=== PATIENT | female | born 1995 | race Caucasian/White ===

== ENCOUNTER → 2020-05-26 15:27 | Outpatient (CLI) | payer OTHER, SELFPAY ==
[2020-05-26 15:51] LABS: Add Manual Diff / Slide Review NO; Basophils Absolute Auto 100 /uL (0-100); Basophils Percent Auto 0.8 % (0-2); Eosinophils Absolute Auto 100 /uL (0-450); Eosinophils Percent Auto 2.3 % (2-4); Hematocrit 41.8 % (36-46); Hemoglobin 13.5 g/dL (12.0-16.0); Lymphocytes Absolute Auto 2000 /uL (1100-4500); Lymphocytes Percent Auto 29.9 % (25-40); Mean Corpuscular HGB Conc 32.2 % (30-36); Mean Corpuscular Hemoglobin 29.4 PG (26-34); Mean Corpuscular Volume 91.3 fL (80-100); Monocytes Absolute Auto 300 /uL (0-900); Neutrophils Absolute Auto 4100 /uL (1500-7000); Platelet Count 238 X10^3/uL (150-400); Red Blood Cell Count 4.58 X10^6/uL (4.0-5.2); Red Cell Distribution Width 14.3 % (11.6-14.8); White Blood Cell Count 6.6 X10^3/uL (4.5-11.0)
[2020-05-26 15:54] LABS: Appearance Urine UA CLEAR; Bilirubin Urine UA NEGATIVE (NEGATIVE); Color Urine UA YELLOW; Glucose Urine UA NEGATIVE (Negative); Ketones Urine UA NEGATIVE (NEGATIVE); Leukocyte Esterase Urine UA NEGATIVE (NEGATIVE); Nitrite Urine UA NEGATIVE (Negative); Occult Blood Urine UA NEGATIVE (Negative); Protein Urine UA NEGATIVE (Negative); Urobilinogen Urine UA 0.2 E.U./dL (0.2)
[2020-05-26 15:55] LABS: pH Urine UA 6.5 (4.5-8.0)
[2020-05-26 16:02] LABS: Alanine Aminotransferase 9 IU/L (<35); Albumin 4.3 g/dL (3.5-5.0); Albumin Globulin Ratio 1.6 (1.0-2.8); Alkaline Phosphatase 37 U/L (38-126); Aspartate Aminotransferase 23 IU/L (14-36); Bilirubin Total 0.6 mg/dL (0.2-1.3); Blood Urea Nitrogen 8 mg/dL (7-17); Calcium 8.9 mg/dL (8.4-10.2); Carbon Dioxide 28 mmol/L (22-32); Chloride 105 mmol/L (98-107); Estimated Glomerular Filt Rate > 60.0 mL/min (>60); Globulin 2.7 g/dL (1.7-4.1); Glucose 74 mg/dL (70-100); HEMOLYSIS < 15 (0-50); Potassium 4.2 mmol/L (3.4-5.1); Sodium 139 mmol/L (137-145)
== END ==
LOC: LAB 15:30
PROVIDERS: PCP Registered Nurse; Referring Provider Registered Nurse; Visit Provider Registered Nurse
DX: R53.83 Other fatigue (principal); E03.9 Hypothyroidism, unspecified
CPT/HCPCS: 36415; 80053; 81003; 84439; 84443; 85025

== ENCOUNTER → 2020-05-30 10:18 | Outpatient (CLI) | payer OTHER, SELFPAY ==
--- NOTE | 2020-05-30 10:19 | DI.US.S_ITS ---
PROCEDURE: US THYROID INDICATIONS: ROBYN'S; NODULES TECHNIQUE: Real-time scanning was performed of the thyroid gland, with image documentation. COMPARISON: None. FINDINGS: Right: Thyroid lobe measures 1.1 x 1.4 x 2.9 cm, and is mildly heterogeneous in echotexture except for presence of a small nodule abutting the margin of the isthmus and and upper 3rd right thyroid lobe nodule, detailed below. Left: Thyroid lobe measures 1.1 x 1.4 x 2.5 cm, and is mildly heterogeneous in echotexture except for presence of a upper lobe small nodule and a lower lobe small nodule. Isthmus: 1.5 mm thick. Nodule number: 1 Location: Right thyroid lobe near the isthmus Size: 1.0 x 0.6 x 1.2 cm. Composition: Solid Echogenicity: Hypoechoic Shape: Wider than tall Margins: Ill-defined Echogenic foci: None Total points: 4 ACR TI-RADS category: Category 4, given small size no biopsy is recommended. Follow-up ultrasound is recommended in 1, 2, 3 and 5 years. Nodule number: 2 Location: Upper 3rd right thyroid lobe Size: 1.2 x 0.9 x 0.7 cm. Composition: Solid Echogenicity: Hypoechoic Shape wider than tall Margins: Ill-defined Echogenic foci: None Total points: 4 ACR TI-RADS category: Category 4, and given small size no biopsy is recommended. Follow-up ultrasound in 1, 2, 3 and 5 years is recommended. Nodule number: 3 Location: Upper left thyroid lobe Size: 0.5 x 1.1 x 1.1 cm Composition: Solid Echogenicity: Hypoechoic Shape: Ill-defined Margins: Wider than tall Echogenic foci: None Total points: For ACR TI-RADS category: Category 4, and given small size no biopsy is recommended. Follow-up ultrasound in 1, 2, 3 and 5 years is recommended. Nodule number: 4 Location: Lower 3rd left thyroid lobe Size: 0.7 x 0.4 x 1.1 cm Composition: Solid Echogenicity: Hypoechoic Shape: Wider than tall Margins: Ill-defined Echogenic foci: None Total points: 4 ACR TI-RADS category: Category 4, and given small size no biopsy is currently recommended. Follow-up by ultrasound in 1, 2, 3 and 5 years is recommended. IMPRESSION: Each of the 4 nodules discussed above is small in size, 2 on the right and 2 on the left, and standardized recommendations for follow-up are provided in the body of the report above. Given the small size of these nodules no biopsy is currently recommended. Follow-up by ultrasound at the schedule noted, equivalent for each nodule, is recommended. ACR TI-RADS definitions and recommendations: TI-RADS 1 (benign): 0 points. FNA not needed. TI-RADS 2 (not suspicious): 2 points. FNA not needed. TI-RADS 3 (mildly suspicious): 3 points. * FNA if 2.5 cm or larger, follow up if 1.5 cm or larger (at 1, 3, and 5 years). TI-RADS 4 (moderately suspicious): 4-6 points. * FNA if 1.5 cm or larger, follow up if 1 cm or larger (at 1, 2, 3, and 5 years). TI-RADS 5 (highly suspicious): 7 points or more. * FNA if 1 cm or larger, follow up if 0.5 cm or larger (every year for 5 years). Dictated by: Donnie Wise M.D. on 05/30/2020 at 12:56 Approved by: Donnie Wise M.D. on 05/30/2020 at 13:06
== END ==
PROVIDERS: PCP Registered Nurse; Referring Provider Registered Nurse; Visit Provider Registered Nurse
DX: E04.2 Nontoxic multinodular goiter (principal)
CPT/HCPCS: 76536

== ENCOUNTER → 2020-07-24 13:54 | Outpatient (CLI) | payer OTHER, SELFPAY ==
[2020-07-24 16:38] LABS: Thyroid Stimulating Hormone 8.56 uIU/mL (0.47-4.68)
== END ==
PROVIDERS: PCP Registered Nurse; Referring Provider Registered Nurse; Visit Provider Registered Nurse
DX: E03.9 Hypothyroidism, unspecified (principal)
CPT/HCPCS: 36415; 84443

== ENCOUNTER → 2021-03-24 15:57 | Outpatient (CLI) | payer OTHER, SELFPAY ==
[2021-03-24 19:35] LABS: Thyroid Stimulating Hormone 122 uIU/mL (0.47-4.68)
[2021-03-30 15:36] LABS: QuantiFERON Mitogen Value >10.00 IU/mL (.); QuantiFERON Nil Value 0.09 IU/mL (.); QuantiFERON TB Gold Plus Negative (Negative); QuantiFERON TB1 Ag Value 0.09 IU/mL (.); QuantiFERON TB2 Ag Value 0.06 IU/mL (.)
== END ==
PROVIDERS: PCP Registered Nurse; Referring Provider Registered Nurse; Visit Provider Registered Nurse
DX: E03.9 Hypothyroidism, unspecified (principal); Z11.1 Encounter for screening for respiratory tuberculosis
CPT/HCPCS: 36415; 84443; 86480

== ENCOUNTER → 2022-05-05 17:01 | Outpatient (CLI) | payer OTHER, SELFPAY ==
[2022-05-05 18:57] LABS: Free T3, Triiodothyronine Free 4.03 pg/mL (2.77-5.27); Free T4, Direct Thyroxine 0.65 ng/dL (0.78-2.19)
[2022-05-05 19:10] LABS: Thyroid Stimulating Hormone 23.7 uIU/mL (0.47-4.68)
== END ==
LOC: LAB 17:02
PROVIDERS: PCP Family Medicine; Referring Provider Family Medicine; Visit Provider Family Medicine
DX: E03.9 Hypothyroidism, unspecified (principal); E04.1 Nontoxic single thyroid nodule
CPT/HCPCS: 36415; 84439; 84443; 84481

== ENCOUNTER → 2023-07-05 16:10 | Outpatient (CLI) | payer OTHER, SELFPAY ==
[2023-07-05 17:43] LABS: Follicle Stimulating Hormone 3.48 mIU/mL; Luteinizing Hormone 4.41 mIU/mL
[2023-07-05 18:34] LABS: Free T4, Direct Thyroxine 0.57 ng/dL (0.78-2.19)
[2023-07-10 13:59] LABS: Percent Free Testosterone 2.42 % (0.50-2.80); Testosterone Free 0.52 ng/dL (0.10-0.85); Testosterone Total 21.4 ng/dL (10.0-55.0)
== END ==
PROVIDERS: PCP Family Medicine; Referring Provider Family Medicine; Visit Provider Family Medicine
DX: L68.0 Hirsutism (principal); N92.6 Irregular menstruation, unspecified; E03.9 Hypothyroidism, unspecified
CPT/HCPCS: 36415; 83001; 83002; 84146; 84402; 84403; 84439; 84443

== ENCOUNTER → 2023-08-20 12:34 | Outpatient (CLI) | payer OTHER, SELFPAY ==
[2023-08-20 13:27] LABS: Free T3, Triiodothyronine Free 4.19 pg/mL (2.77-5.27)
[2023-08-20 13:41] LABS: TSH w/ Reflex to FT4 8.02 uIU/mL (0.47-4.68)
[2023-08-20 14:06] LABS: Free T4, Direct Thyroxine 0.99 ng/dL (0.78-2.19)
== END ==
PROVIDERS: PCP Family Medicine; Referring Provider Family Medicine; Visit Provider Family Medicine
DX: E03.9 Hypothyroidism, unspecified (principal)
CPT/HCPCS: 36415; 84439; 84443; 84481

== ENCOUNTER → 2023-11-30 13:35 | Outpatient (CLI) | payer OTHER, SELFPAY ==
[2023-11-30 15:31] LABS: Free T3, Triiodothyronine Free 5.31 pg/mL (2.77-5.27); Free T4, Direct Thyroxine 1.76 ng/dL (0.78-2.19)
[2023-11-30 15:45] LABS: Thyroid Stimulating Hormone 0.703 uIU/mL (0.47-4.68)
[2023-12-01 16:59] LABS: Anti Thyroglobulin Antibody 1.1 IU/mL (0.0-0.9); Thyroid Peroxidase Antibodies 179 IU/mL (0-34)
== END ==
LOC: LAB 13:37
PROVIDERS: PCP Family Medicine; Referring Provider Family Medicine; Visit Provider Family Medicine
DX: E03.9 Hypothyroidism, unspecified (principal); E04.1 Nontoxic single thyroid nodule
CPT/HCPCS: 36415; 84439; 84443; 84481; 86376; 86800

== ENCOUNTER → 2023-12-22 12:14 | Outpatient (CLI) | payer OTHER, SELFPAY ==
--- NOTE | 2023-12-22 12:15 | DI.US.S_ITS ---
PROCEDURE: US THYROID INDICATIONS: FOLLOW-UP NODULES TECHNIQUE: Real-time scanning was performed of the thyroid gland, with image documentation. COMPARISON: [facility], [place], US THYROID, 05/30/2020, 10:25. FINDINGS: Thyroid: Right lobe measures 3.3 x 1.1 x 0.9 cm. Left lobe measures 2.5 x 1.1 x 0.9 cm. Isthmus is 0.2 cm thick. Echotexture is heterogeneous. Nodule number: 1 Location: Right mid Size: 0.9 x 0.8 x 0.4 cm. (Previously 1.2 x 1 x 0.6 cm). Decreased. Composition: Solid Echogenicity: Isoechoic Shape: wider than tall. Margins: Smooth Echogenic foci: None Total points: 3 ACR TI-RADS category: TR 3, mildly suspicious Nodule number: 2 Location: Right superior Size: 1.1 x 0.7 x 0.5 cm. (previously 1.2 x 0.9 x 0.7 cm). Decreased. Composition: Solid Echogenicity: Isoechoic Shape: wider than tall. Margins: Smooth Echogenic foci: None Total points: 3 ACR TI-RADS category: TR 3, mildly suspicious Nodule number: 3 Location: Left superior Size: 1 x 0.6 x 0.3 cm. (Previously 1.1 x 1.1 x 0.5 cm). Decreased Composition: Solid Echogenicity: Hypoechoic Shape: wider than tall. Margins: Smooth Echogenic foci: None Total points: 4 ACR TI-RADS category: TR 4, moderately suspicious Nodule number: 4 Location: Left inferior Size: 0.7 x 0.4 x 0.3 cm. (Previously 1.1 x 0.7 x 0.4 cm). Composition: Solid Echogenicity: Hypoechoic Shape: wider than tall. Margins: Smooth Echogenic foci: None Total points: 4 ACR TI-RADS category: TR 4, moderately suspicious IMPRESSION: Heterogeneous thyroid gland. Multiple small thyroid nodules bilaterally which are decreased in size compared to 2020. Follow-up imaging is not required. ACR TI-RADS definitions and recommendations: TI-RADS 1 (benign): 0 points. FNA not needed. TI-RADS 2 (not suspicious): 2 points. FNA not needed. TI-RADS 3 (mildly suspicious): 3 points. * FNA if 2.5 cm or larger, follow up if 1.5 cm or larger (at 1, 3, and 5 years). TI-RADS 4 (moderately suspicious): 4-6 points. * FNA if 1.5 cm or larger, follow up if 1 cm or larger (at 1, 2, 3, and 5 years). TI-RADS 5 (highly suspicious): 7 points or more. * FNA if 1 cm or larger, follow up if 0.5 cm or larger (every year for 5 years). Dictated by: Arash Foster M.D. on 12/22/2023 at 21:40 Approved by: Arash Foster M.D. on 12/22/2023 at 21:47
== END ==
LOC: US 12:14
PROVIDERS: PCP Family Medicine; Referring Provider Family Medicine; Visit Provider Family Medicine
DX: E04.2 Nontoxic multinodular goiter (principal); E03.9 Hypothyroidism, unspecified
CPT/HCPCS: 76536

== ENCOUNTER → 2024-10-25 07:48 | Outpatient (CLI) | payer OTHER, SELFPAY | LOC: CAR 07:49 | PROVIDERS: PCP Family Medicine; Referring Provider Family Medicine; Visit Provider Family Medicine | DX: R00.2 Palpitations (principal); R00.0 Tachycardia, unspecified | CPT/HCPCS: 93246 ==

== ENCOUNTER → 2024-11-29 10:52 | Outpatient (CLI) | payer OTHER, SELFPAY ==
[2024-11-29 12:51] LABS: TSH w/ Reflex to FT4 1.63 uIU/mL (0.47-4.68)
== END ==
PROVIDERS: PCP Family Medicine; Referring Provider Family Medicine; Visit Provider Family Medicine
DX: E03.9 Hypothyroidism, unspecified (principal)
CPT/HCPCS: 36415; 84443